=== PATIENT | female | born 1955 | race Caucasian/White ===

== ENCOUNTER → 2024-10-19 | Outpatient (CLI) | payer MEDICARE, BC, SELFPAY ==
--- NOTE | 2024-10-19 | XR_ITS ---
Examination: PA lateral chest 2 views TECHNIQUE: Upright PA lateral chest 2 views Date and time: October 19, 2024 1238 hours, comparison February 13, 2009 INDICATIONS: Coughing shortness of breath beginning 4 weeks ago. FINDINGS: Minor subsegmental atelectasis left midlung Normal heart size Accentuation of the basilar bronchovascular markings No lobar pneumonia Prominent osteopenia IMPRESSION: Mild basilar bronchitis pattern
[2024-10-19 13:16] LABS: Collection Type, Urine Clean Catch
[2024-10-19 13:30] LABS: Basophils # (Auto) 0.1 Thou/mm3 (0.0-0.2); Basophils % (Auto) 1 % (0-2.5); Eosinophils # (Auto) 0.4 Thou/mm3 (0.0-0.5); Eosinophils % (Auto) 5 % (0-10); Hematocrit 33.3 % (36.0-46.0); Hemoglobin 11.2 g/dL (12.0-16.0); Immature Granulocytes Auto 0.03 Thou/mm3 (0.00-0.00); Lymphocytes # (Auto) 1.3 Thou/mm3 (1.0-4.8); Lymphocytes % (Auto) 16 % (10-50); Mean Corpuscular HGB Conc 33.6 g/dl (31.0-37.0); Mean Corpuscular Hemoglobin 31.6 pg (25.0-35.0); Mean Corpuscular Volume 94 fL (80-100); Monocytes # (Auto) 0.4 Thou/mm3 (0.0-0.8); Monocytes % (Auto) 5 % (0-12); Neutrophils # (Auto) 5.9 Thou/mm3 (1.8-7.7); Neutrophils % (Auto) 73 % (37-80); Nucleated Red Blood Cell # 0.00 Thou/mm3 (0.00-0.00); Nucleated Red Blood Cell % 0 /100 WBC (0); Platelet Count 375 Thou/mm3 (140-440); RDW Standard Deviation 45.7 fL (36.4-46.3); Red Blood Count 3.54 Miln/mm3 (4.00-5.20); White Blood Count 8.2 Thou/mm3 (3.6-11.0)
[2024-10-19 13:46] LABS: Bacteria,Urine Rare; Bilirubin,Urine Negative (Negative); Blood,Urine Negative (Negative); Clarity,Urine Clear (Clear/Hazy); Color,Urine Lt-Yellow (Lt Yel-Yel); Glucose, Urine 4+ (Negative); Hyaline Casts,Urine < 1 /hpf (0-1); Ketones,Urine 4+ (Negative); Leukocyte Esterase,Urine Negative (Negative); Nitrite,Urine Negative (Negative); PH,Urine 6.0 (5.0-7.0); Protein,Urine Negative (Neg - Trace); RBC,Urine 3 /hpf (0-3); Specific Gravity,Urine 1.042 (1.001-1.035); Squamous Epithelial Cell,Urine 15 /hpf (0-5); Urobilinogen,Urine Negative mg/dL (0.0-1.0); WBC,Urine 4 /hpf (0-5)
[2024-10-19 13:49] LABS: Glucose Estimated Average 111 mg/dL (80-131); Hemoglobin A1C 5.5 % Hgb (4.8-6.0)
[2024-10-19 13:54] LABS: Amphetamine/Methamp Scrn,U Negative (Negative); Barbiturate Screen,Urine Negative (Negative); Benzodiazepines Screen,Urine Positive (Negative); Benzoylecgonine Screen, Ur Negative (Negative); Creatinine MALB Rnd Ur 127 mg/dL (30-125); Fentanyl Screen,Urine Negative (Negative); Microalbumin Creat Ratio 5 mg/gCrea (<30); Microalbumin, Random Urine 6 mg/L (0-300); Opiate Screen,Urine Positive (Negative); THC Screen,Urine Negative (Negative)
[2024-10-19 14:02] LABS: Vitamin D 25 Hydroxy Total 51.0 ng/mL (7.3-40.2)
[2024-10-19 14:04] LABS: Alanine Aminotransferase 25 U/L (10-49); Albumin, Serum 4.5 gm/dL (3.4-4.8); Albumin/Globulin Ratio 2.0 (1.2-2.2); Alkaline Phosphatase 73 U/L (46-116); Anion Gap 7 (7-16); Aspartate Amino Transferase 26 U/L (0-34); BUN/Creatinine Ratio 11 Ratio (12-20); Bilirubin,Total 0.4 mg/dL (0.3-1.2); Blood Urea Nitrogen 10 mg/dL (9-23); Calcium 10.3 mg/dL (8.3-10.6); Calcium (Corrected) 10.3 mg/dL (8.5-10.1); Carbon Dioxide 25.1 mMol/L (20.0-31.0); Cardiac Risk Estimate 2.3 RATIO (3.7-5.6); Chloride 102 mMol/L (98-107); Cholesterol 124 mg/dL (132-200); Creatinine (Component) 0.9 mg/dL (0.6-1.3); Free T4 (Free Thyroxine) 0.93 ng/dL (0.89-1.76); Globulin 2.2 gm/dL (2.3-3.5); Glucose 104 mg/dL (74-106); HDL Cholesterol 54 mg/dL (40-60); LDL Cholesterol,Calculated 47 mg/dL (0-130); Osmolality,Calculated 267 (275-295); Potassium 5.2 mMol/L (3.4-5.1); Sodium 134 mMol/L (136-145); Thyroid Stimulating Hormone 0.83 uIU/mL (0.55-4.78); Total Protein 6.7 gm/dL (5.7-8.2); Triglycerides 113 mg/dL (30-150); eGFR > 60 See Note
[2024-10-24 14:13] LABS: HCV RNA, PCR <15 NOT DETECTED IU/mL
[2024-10-25 06:28] LABS: Aldosterone* 4 ng/dL; HCV RNA, PCR Log IU <1.18 NOT DETECTED Log IU/mL
== END | disposition home or self-care (01) ==
LOC: CDIM 11:51 → COPL 12:31
PROVIDERS: PCP Internal Medicine; Referring Provider Nurse Practitioner Family; Visit Provider Radiology Diagnostic Radiology
DX: J45.909 Unspecified asthma, uncomplicated (principal); F41.9 Anxiety disorder, unspecified; M48.061 Spinal stenosis, lumbar region without neurogenic claudication; E78.5 Hyperlipidemia, unspecified; F33.1 Major depressive disorder, recurrent, moderate; I10 Essential (primary) hypertension; M79.7 Fibromyalgia; N32.81 Overactive bladder
CPT/HCPCS: 36415; 71046; 80053; 80061; 80307; 81001; 82043; 82088; 82306; 82570; 83036; 84439; 84443; 85025; 87522